=== PATIENT | female | born 2000 | race Caucasian/White ===

== ENCOUNTER 2020-10-30 16:47 | Observation (INO) | payer OTHER, SELFPAY ==
[2020-10-30 17:04] VITALS: BP 125/68; PULSE 100
[2020-10-30 17:06] VITALS: BP 119/68; PULSE 98
--- NOTE | 2020-10-30 17:26 | OBADM ---
This patient, Cyn Prescott, admitted to the OB room OB Post 117 for observation. Patient/family oriented to hospital policies and general routines including ID bracelet, bed and alarms, visiting hours, pain management, procedures, bathroom and other care routines, personal items, smoking policy, room service/diet, and visiting hours. Patient/Family are encouraged to report perceived risks to care and to ask questions if they do not understand what they are told or what they should do.
[2020-10-30 17:35] VITALS: BMI 37.0
[2020-10-30 17:57] LABS: Add Urine Microscopic? YES; Appearance Urine Clear (Clear); Bacteria Urine Trace /hpf; Bilirubin Urine Negative (Negative); Blood Urine 1+ (Negative); Color Urine Yellow (Yellow); Glucose Urine UA Negative (Negative); Ketones Urine Negative (Negative); Leukocyte Esterase Ur 2+ LEU/UL (NEGATIVE); Mucus Urine Few /lpf; Nitrate Urine Negative (Negative); Protein Urine 1+ mg/dL (Negative); Specific Grav Ur 1.024 (1.001-1.035); Squamous Epithelial Cell Urine Many /hpf (Few); Urobilinogen Urine Negative mg/dL (<2.0)
[2020-10-30 18:01] VITALS: BP 107/60; PULSE 80
--- NOTE | 2020-11-24 20:41 | PM.OBTRLD ---
OB - Triage/Final Diagnosis Evaluation Laboratory results: Laboratory Tests 10/30/20 17:33 Urine Color Yellow Urine Appearance Clear Urine pH 6.0 Ur Specific Success 1.024 Urine Protein 1+ H Urine Glucose (UA) Negative Urine Ketones Negative Ur Blood (Man) 1+ H Urine Nitrate Negative Urine Bilirubin Negative Urine Urobilinogen Negative Ur Leukocyte Esterase 2+ H Urine RBC 3-5 H Urine WBC 7-9 H Ur Squamous Epith Cells Many H Urine Bacteria Trace Hyaline Casts 1-2 Urine Mucus Few H Final Diagnosis (1) contractions: Code(s): O47.9 - False labor, unspecified Status: Acute
== END 2020-10-30 18:45 | disposition home or self-care (01) ==
PROVIDERS: Admitting Provider Obstetrics & Gynecology; PCP Family Medicine; Visit Provider Obstetrics & Gynecology
DX: O47.03 False labor before 37 completed weeks of gestation, third trimester (principal); Z3A.34 34 weeks gestation of pregnancy
CPT/HCPCS: 81001; 87086; 87088; G0378; G0379

== ENCOUNTER 2020-12-03 06:02 | Inpatient (IN) | payer OTHER, SELFPAY ==
[2020-12-03] VITALS (51 sets, daily range): BP systolic 105–141; BP diastolic 56–90; PULSE 62–102; RESP 16; TEMP 36.2–36.6; O2SAT 98–100; BMI 39.6
[2020-12-03 06:53] LABS: Basophils Percent Auto 0.4 % (0.2-1.2); Eosinophils Percent Auto 0.6 % (0-4.4); Hemoglobin 12.1 g/dL (12.0-15.0); Immature Granulocyte Absolute 0.04 K/mm3 (0.00-0.031); Immature Granulocyte Percent A 0.6 % (0-0.5); Lymphocytes Absolute Auto 2.53 K/mm3 (0.9-3.2); Lymphocytes Percent Auto 36.9 % (18.3-44.2); Mean Corpuscular HGB Conc 31.8 g/dl (32-36); Mean Corpuscular Hemoglobin 28.2 pg (26-34); Mean Corpuscular Volume 88.6 fl (80-100); Mean Platelet Volume 11.2 fl (7.4-10.4); Monocytes Absolute Auto 0.4 K/mm3 (0.1-0.6); Monocytes Percent Auto 5.7 % (2.6-8.5); Neutrophils Absolute Auto 3.8 K/mm3 (1.3-6.7); Neutrophils Percent Auto 55.8 % (45.5-73.1); Platelet Count Result 218 k/mm3 (150-375); Red Blood Count 4.29 M/mm3 (4.2-5.4); Red Cell Distribution Width 13.3 % (11.5-14.5); White Blood Count 6.9 K/mm3 (4.5-10.0)
[2020-12-03] MEDS: OXYTOCIN 30 UNITS/NS 500 ML 30 UNITS/500 ML BAG IV CONT (07:05)
[2020-12-03] MEDS: LACTATED RINGERS 1,000 ML 125 ML IV CONT (07:06)
--- NOTE | 2020-12-03 07:16 | LDADM ---
This patient, Cyn Prescott, was admitted to Labor/Delivery/Recovery 105 on 12/03/20 at 06:02. Plans for labor, pain management and were discussed with patient. Patient/family oriented to hospital policies and general routines including ID bracelet, bed and alarms, visiting hours, pain management, procedures, bathroom and other care routines, personal items, smoking policy, room service/diet and guest tray routines, security routines, and visiting hours. Patient/Family are encouraged to report perceived risks to care and to ask questions if they do not understand what they are told or what they should do. See OBIX for further documentation.
--- NOTE | 2020-12-03 08:07 | WPDHPUPDATE1 ---
History and Physical Update Update Date/Time: 12/03/20 08:07 AROM - clear 50/-3 reactive fht's History and Physical has been reviewed, including an updated exam of the patient. There are NO changes in the patient's condition. Risks, benefits, and alternatives have been discussed and questions answered. Patient agrees to proceed with procedure.
[2020-12-03 08:37] LABS: Glucose Point of Care 87 (65-105)
--- NOTE | 2020-12-03 10:28 | WPDANESEPP ---
Anes - Eval Pre Procedure Procedure: labor epidural Date/Time: 12/03/20 10:28 Surgeon: Chaya Preop Diagnosis: pain during labor Pre Op Diagnosis: Induction of Labor Patient Data Age: 20 Gender: F Height: 5 ft 5 in Weight: 108 kg Last Vital Signs Temp 36.4 C L 12/03/20 10:00 Pulse 74 12/03/20 10:26 BP 132/72 12/03/20 10:26 Pulse Ox 100 12/03/20 10:25 Allergies Allergy/AdvReac Type Severity Reaction Status Date / Time No Known Allergies Allergy Unverified 07/22/19 19:12 Home Medications Medication Instructions Recorded Confirmed Type PNV no.[id number] 2 tablet PO DAILY 12/03/20 12/03/20 History [ Gummies] Laboratory Tests 12/03/20 12/03/20 12/03/20 06:46 06:46 06:46 WBC 6.9 K/mm3 K/mm3 (4.5-10.0) RBC 4.29 M/mm3 M/mm3 (4.2-5.4) Hgb 12.1 g/dL g/dL (12.0-15.0) Hct 38.0 % % (37.0-47.0) MCV 88.6 fl fl (80-100) MCH 28.2 pg pg (26-34) MCHC 31.8 g/dl L g/dl (32-36) RDW 13.3 % % (11.5-14.5) Plt Count 218 k/mm3 k/mm3 (150-375) MPV 11.2 fl H fl (7.4-10.4) Immature Gran % (Auto) 0.6 % H % (0-0.5) Neut % (Auto) 55.8 % % (45.5-73.1) Lymph % (Auto) 36.9 % % (18.3-44.2) Lynn % (Auto) 5.7 % % (2.6-8.5) Eos % (Auto) 0.6 % % (0-4.4) Baso % (Auto) 0.4 % % (0.2-1.2) Lymph # (Auto) 2.53 K/mm3 K/mm3 (0.9-3.2) [place] # (Auto) 0.4 K/mm3 K/mm3 (0.1-0.6) Eos # (Auto) 0.0 K/mm3 K/mm3 (0-0.3) Baso # (Auto) 0.0 K/mm3 K/mm3 (0.0-0.1) Abs Immat Gran (auto) 0.04 K/mm3 H K/mm3 (0.00-0.031) Absolute Neuts (auto) 3.8 K/mm3 K/mm3 (1.3-6.7) Absolute Nucleated RBC 0.0 K/mm3 K/mm3 (0.0-0.012) Nucleated RBC % 0.0 % % (0.0-0.2) POC Capillary Glucose RPR Pending Blood Type A Positive Antibody Screen Negative 12/03/20 08:34 WBC RBC Hgb Hct MCV MCH MCHC RDW Plt Count MPV Immature Gran % (Auto) Neut % (Auto) Lymph % (Auto) Lynn % (Auto) Eos % (Auto) Baso % (Auto) Lymph # (Auto) Lynn # (Auto) Eos # (Auto) Baso # (Auto) Abs Immat Gran (auto) Absolute Neuts (auto) Absolute Nucleated RBC Nucleated RBC % POC Capillary Glucose 87 mg/dl mg/dl (65-105) RPR Blood Type Antibody Screen Patient hx anesthesia problems: none Family hx anesthesia problems: none PMFSH Past Medical History Medical History Morbid obesity Smoker Social History Social History Years smoked: 5 Smoking status: Current every day smoker Tobacco type: cigarettes Second hand tobacco smoke exposure: No Gender identity (if verbalized by the patient): Female Sexual Orientation (if Verbalized by the Patient): Straight or Heterosexual Spiritual care concerns: No Exam Day of Procedure 12/03/20 10:28 Patient weight: morbidly obese Heart: regular rate and rhythm Lungs: clear to auscultation and normal air movement Neurological: alert and oriented
[2020-12-03 11:58] LABS: Amphetamine Screen Urine Negative (Negative); Barbiturate Screen Urine Negative (Negative); Benzodiazepines Screen Urine Negative (Negative); Cannabinoid Screen Urine Negative (Negative); Cocaine Screen Urine Negative (Negative); Methadone Screen Urine Negative (Negative); Opiate Screen Urine Negative (Negative); Phencyclidine Screen Urine Negative (Negative)
--- NOTE | 2020-12-03 13:03 | PM.OBPRVD ---
OB - Delivery Note Procedure Delivery date: 12/03/20 Procedure: events: Labor Induction Intrapartal events: None Induction method: AROM and per pitocin protocol Delivery monitor: external FHT and external uterine Route of delivery: Quantitative Blood Loss (ml): 150 Anesthesia type: Epidural Disposition: floor [place] Baby Date of : 12/03/20 Time of : 12:54 Weeks of gestation at delivery: 39 Weight (pounds): 8 Weight (ounces): 0 position: Left Occiput Anterior Placenta delivery description: Spontaneous score one minute: 8 score five minutes: 9
[2020-12-03] MEDS: OXYTOCIN 30 UNITS/NS 500 ML 30 UNITS/500 ML BAG 125 UNITS IV CONT (13:10)
--- NOTE | 2020-12-03 16:35 | PC.NURSE ---
Patient transferred to post room #279 via wheelchair. Support person present. Oriented to unit, room, information board, rooming in, admission packet and security measures. Patient verbalizes understanding.
[2020-12-04] MEDS: IBUPROFEN 600 MG TABLET PO ×2 (04:30→13:18)
[2020-12-04 05:28] LABS: Hemoglobin 10.1 g/dL (12.0-15.0)
--- NOTE | 2020-12-04 07:39 | PM.OBPNVD ---
OB - PN: Subj Subjective Date/time seen: 12/04/20 07:39 Patient comments: no complaints baby status: doing well OB - PN: Obj Data Labs CBC & Chem 7: 12/04/20 04:35 Labs: Laboratory Results - last 24 hr 12/03/20 12/03/20 12/03/20 06:46 08:34 11:34 Hgb Hct POC Capillary Glucose 87 Urine Opiates Screen Negative Urine Methadone Screen Negative Ur Barbiturates Screen Negative Ur Phencyclidine Scrn Negative Ur Amphetamine Screen Negative U Benzodiazepines Scrn Negative Urine Cocaine Screen Negative U Cannabinoids Screen Negative Blood Type A Positive Antibody Screen Negative 12/04/20 04:35 Hgb 10.1 L Hct 32.0 L POC Capillary Glucose Urine Opiates Screen Urine Methadone Screen Ur Barbiturates Screen Ur Phencyclidine Scrn Ur Amphetamine Screen U Benzodiazepines Scrn Urine Cocaine Screen U Cannabinoids Screen Blood Type Antibody Screen OB - PN A/P Plan day: 1 Plan: routine care and discharge home Time Spent With Patient Time: Total time spent is greater than 50% in coordination of care (as documented) at patient's floor/unit and/or counseling patient: Review of Systems Review of Systems: All systems reviewed & are unremarkable except as noted in HPI and below Exam Const: General: cooperative Nutritional Appearance: average body habitus Psych: Affect: normal affect Thought process: Normal thought process present Thought content: Yes Normal thought content present
--- NOTE | 2020-12-04 07:43 | PM.OBDSVD ---
DS: Admitting Diagnosis Admitting Diagnosis Admitting Diagnosis: EIL OB - DS: Summary OB Procedures : None OB Procedures Intrapartum: Spontaneous Vag Delivery OB Procedures: : None Time Spent with Patient Time attestation: Total time spent providing and/or coordinating discharge services: DS: Data Data Completed and Pending Labs on day of discharge: Labs from last 24 hours 12/04/20 12/03/20 12/03/20 04:35 11:34 08:34 Hgb 10.1 L Hct 32.0 L POC Capillary Glucose 87 Urine Opiates Screen Negative Urine Methadone Screen Negative Ur Barbiturates Screen Negative Ur Phencyclidine Scrn Negative Ur Amphetamine Screen Negative U Benzodiazepines Scrn Negative Urine Cocaine Screen Negative U Cannabinoids Screen Negative Blood Type Antibody Screen 12/03/20 06:46 Hgb Hct POC Capillary Glucose Urine Opiates Screen Urine Methadone Screen Ur Barbiturates Screen Ur Phencyclidine Scrn Ur Amphetamine Screen U Benzodiazepines Scrn Urine Cocaine Screen U Cannabinoids Screen Blood Type A Positive Antibody Screen Negative Discharge Plan Discharge Attending physician on discharge: roosevelt Discharging Clinician: susan Patient Disposition: Home, Self-Care Activity: pelvic rest Diet: regular Patient Instructions: Antibiotic Form Stand Alone Forms: General Discharge Information Follow-up/Referrals: Aguila Larkin MD [Physician] - 4 Weeks Discharge Medications: Continued Gummies 400 mcg-35 mg- 25 mg-5 mg Tablet,Chewable 2 tablet PO DAILY RF: 0 Date of admission: 12/03/20 06:02 Primary Care Provider: Rohini,Neli Mccartney Admitting Provider: Aguila Larkin Attending physician on admission: Aguila Larkin Condition: Stable
[2020-12-04 07:50] VITALS: BP 138/70; PULSE 72; RESP 16; TEMP 36.6; O2SAT 99
[2020-12-04 08:00] VITALS: PULSE 72; RESP 16; O2SAT 99
[2020-12-04] MEDS: MULTIVIT/MIN/PREN/FOL AC/IRON TABLET 1 TAB PO (09:06)
--- NOTE | 2020-12-04 09:12 | WPDANLDPN2 ---
Anes-Prog Note L&D Date/Time: 12/04/20 09:12 Comfortable throughout: labor Neuraxial method: epidural Epidural/Spinal procedure site: clean & non-tender Neuro status: Neuro function grossly intact. Cardiovascular status: normal Respiratory status: normal Airway patency: baseline Mental status: baseline Post-Op hydration status: normal Vital Signs: Last Vital Signs Temp 36.3 C L 12/03/20 19:30 Pulse 96 12/03/20 19:30 Resp 16 12/03/20 19:30 BP 129/68 12/03/20 19:30 Pulse Ox 100 12/03/20 19:30 Pain score (VAS): 0 Post-procedural complaints: none Patient feedback: Patient satisfied with anesthetic care.
[2020-12-04 09:32] LABS: Rapid Plasma Reagin Non-Reactive (NonReactive)
--- NOTE | 2020-12-04 10:59 | PC.NURSE ---
1030 Breast feeding note; spent time with mother; reviewed frequency,q2-3h and on demand feedings, and duration of feedings, keeping baby nursing as vigorously as he will for as long as he will, and waking infant if necessary. Mother reports comfortable breast feeding, no nipple pain and that baby is latching well. Reviewed care of breasts through engorgement. Mother states she has a Medela pump at home from her sister. Encouraged exclusive breast feeding for the first two weeks to establish milk supply, using pump as needed for comfort if needed, especially when her milk first comes in. Reviewed nipple care, and use of feeding log to monitor feedings and wet/dirty diapers per day of age. Breast feeding pages flagged in pt's Mother Baby Guide, including LC contact information. Pt encouraged to keep her f/u appointment with nurse here at hospital as well as the baby's 1 week check-up with baby's DrRiki; also encouraged to call the LC office as needed with questions or concerns. Nurse offered to come back and observe a breast feeding prior to their discharge today. Mother nodded in agreement, but did not seem to have any concerns. Pt attentive and voiced understanding of all information shared.
[2020-12-04] MEDS: MEASLES,MUMPS,RUBELLA VACCINE 0.5 ML VIAL SUB-Q (16:17)
== END 2020-12-04 16:55 | disposition home or self-care (01) | DRG 560 ==
LOC: ANHLDR 06:12 → ANHOB2 15:43
PROVIDERS: Admitting Provider Obstetrics & Gynecology; PCP Family Medicine; Visit Provider Obstetrics & Gynecology
DX: O99.214 Obesity complicating childbirth (principal); E66.01 Morbid (severe) obesity due to excess calories; O99.334 Smoking (tobacco) complicating childbirth; F17.210 Nicotine dependence, cigarettes, uncomplicated; Z3A.39 39 weeks gestation of pregnancy; Z37.0 Single live birth
CPT/HCPCS: 36415; 80307; 85014; 85018; 85025; 86592; 86850; 86900; 86901; 90710; A9270; J2590; J2795; J7120

== ENCOUNTER 2025-02-28 22:25 | Emergency (ER) | payer OTHER, SELFPAY ==
[2025-02-28 22:27] VITALS: BP 131/73; PULSE 76; RESP 18; TEMP 36.6; O2SAT 100
--- OUTSIDE RECORDS SUMMARY | 2025-02-28 22:46 | XMS_ITS | Clinical Summary ---
Author Organization [facility] Address [address] [place] [address] Care Team Providers Care [place] Tanner Name Role Phone Unavailable Primary Care Provider Unavailabl e Source Comments [facility],non-owned Affiliates and Associated Physician Practices is amultiple site organization consisting of ambulatory clinics and hospital sitesin [place], [place], [place] and [place]. This disclosure is being madepursuant to the Care Everywhere program and may not contain all information available regarding this patient. Last updated 18.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 [employer] Gender Identity Not on file Sexual Orientation Not on file Plan of Treatment Health Maintenance Due Date Last Done Comments PAP SMEAR 1998 HIV SCREENING 2013 HPV VACCINE (1 - 3-dose series) 2013 HEPATITIS C SCREENING 06/10/2016 DTAP/TDAP/TD VACCINES (1 - Tdap) 2017 HEPATITIS B VACCINE (1 of 3 - 19+ 3-dose series) 2017 COVID-19 VACCINE ( - 2023-2 5 season) 2024 DEPRESSION SCREENING 11/06/2024 OB-ONE HOUR GLUCOSE 11/08/2024 OB-TDAP CURRENT 11/15/2024 OB-RHOGAM INJECTION 11/22/2024 OB-GROUP B STREP SCREEN 01/10/2025 INFLUENZA VACCINE (Season Ended) 2025 ZOSTER VACCINE (1 of 2) 2048 HIB VACCINE Aged Out No longer eligi ble based on patient's age to complete this topic MENINGOCOCCAL (Group B) VACC INE SHARED DECISION-MAKING Aged Out No longer eligibl e based on patient's age to complete this topic MENINGOCOCCAL GROUPS A/C/Y/W VACCINE Aged Out No longer eligible b ased on patient's age to complete this topic PNEUMOCOCCAL VACCINE Aged Out No long er eligible based on patient's age to complete this topic Respiratory Syncytial Virus (RSV) Vaccine Pt: or over 60 yrs (No Doses Required) Completed Insurance
[2025-02-28 23:03] LABS: Basophils Absolute Auto 0.1 K/mm3 (0.0-0.1); Basophils Percent Auto 0.8 % (0.2-1.2); Eosinophils Absolute Auto 0.1 K/mm3 (0-0.3); Eosinophils Percent Auto 2.2 % (0-4.4); Hematocrit 33.2 % (37.0-47.0); Hemoglobin 9.6 g/dL (12.0-15.0); Immature Granulocyte Absolute 0.01 K/mm3 (0.00-0.031); Immature Granulocyte Percent A 0.2 % (0-0.5); Lymphocytes Absolute Auto 2.79 K/mm3 (0.9-3.2); Lymphocytes Percent Auto 46.8 % (18.3-44.2); Mean Corpuscular HGB Conc 28.9 g/dl (32-36); Mean Corpuscular Hemoglobin 25.7 pg (26-34); Mean Corpuscular Volume 88.8 fl (80-100); Mean Platelet Volume 9.9 fl (7.4-10.4); Monocytes Absolute Auto 0.3 K/mm3 (0.1-0.6); Monocytes Percent Auto 5.5 % (2.6-8.5); Neutrophils Absolute Auto 2.7 K/mm3 (1.3-6.7); Neutrophils Percent Auto 44.5 % (45.5-73.1); Platelet Count Result 342 k/mm3 (150-375); Red Blood Count 3.74 M/mm3 (4.2-5.4); Red Cell Distribution Width 13.9 % (11.5-14.5)
--- NOTE | 2025-02-28 23:06 | ED_ITS ---
HPI - General Adult General Chief complaint: Abdominal Pain Stated complaint: infection Time Seen by Provider: 02/28/25 22:27 Source: patient Mode of arrival: ambulatory Limitations: no limitations History of Present Illness HPI narrative: This is a 24-year-old female who who was approximately 3 weeks who presents to the ED for chief complaint of potential infection around the surgical incision site for her Caesarean section. Patient states that she has noticed a malodor as well as some drainage from the area. Denies any pain. Denies associated nausea, vomiting, diarrhea, fevers, syncope, dizziness. States that she had the danay removed about 2 weeks ago. States that she has been trying to keep the area dry although it is consistently moist. Related Data Home Medications ?Medication ?Instructions ?Recorded ?Confirmed ?Last Taken ?Type PNV 153-FA 400 mcg-om3 35 mg-dha 2 tablet PO DAILY 12/03/20 12/03/20 12/02/20 09:00 History 25 mg-epa 5 mg-fish oil chew tablet ( Gummies) Allergies Allergy/AdvReac Type Severity Reaction Status Date / Time No Known Allergies Allergy Verified 02/28/25 22:26 Review of Systems 2 Review of Systems: All systems as dictated in [facility] Past Medical History Medical History (Updated 02/28/25 @ 23:37 by Alexandro Mckeon PA-C) Smoker Morbid obesity Social History Social History Years smoked: 5 Smoking status: Current every day smoker Tobacco type: cigarettes Second hand tobacco smoke exposure: No Gender identity (if verbalized by the patient): Female Sexual Orientation (if Verbalized by the Patient): Straight or Heterosexual Spiritual care concerns: No Exam 2 Narrative: GENERAL: Well-appearing, well-nourished, and in no acute distress. HEAD: Normocephalic, atraumatic. EYES: PERRLA and EOMI. ENT: Nares clear, no rhinorrhea or epistaxis. Mucous membranes moist. Oropharynx without tonsillar hypertrophy exudate or other lesions. NECK: Supple. No adenopathy or masses. CHEST: No respiratory distress. Clear to auscultation. No wheezes rales or rhonchi HEART: Regular rate and rhythm. No murmur heard. Normal peripheral pulses. ABDOMEN: Skin fold of the abdomen containing well-healing incision. However the area is quite moist with malodor. There are beefy red satellite lesions scattered around the skin in this region. There is no warmth or tenderness. Minimal surrounding erythema and no induration fluctuance. Soft, nontender, nondistended, normal active bowel sounds. MSK: Normal range of motion. No edema. SKIN: Warm, dry, no rash. NEURO: Alert and oriented x4. No focal deficits. PSYCH: Normal mood and affect. Course Vital Signs Vital signs: Vital Signs Temperature 98 F 02/28/25 22: Pulse Rate 76 02/28/25 22:27 Respiratory Rate 18 02/28/25 22:27 Blood Pressure 131/73 02/28/25 22:27 Pulse Oximetry 100 02/28/25 22:27 Oxygen Delivery Room Air 02/28/25 22:27 Temperature 98 F 02/28/25 22: Pulse Rate 76 02/28/25 22:27 Respiratory Rate 18 02/28/25 22:27 Blood Pressure 131/73 02/28/25 22:27 Pulse Oximetry 100 02/28/25 22:27 Oxygen Delivery Room Air 02/28/25 22:27 Medical Decision Making MDM Narrative Medical decision making narrative: This is a 24-year-old female who presents to the ED for chief complaint of possible infection to the site, 3 weeks . Vitals are normal. Exam shows moist abdominal skin fold with red satellite lesions around the incision site. The incision itself is well-appearing and does not appear to be open or draining. Presentation most likely consistent with yeast infection of the skin. Lab work is unremarkable overall. Urinalysis does show some evidence of leuk esterase and white blood cells, however she is not having urinary symptoms. Urine culture is pending. Will defer to Ob/primary as I do think antibiotics could make the yeast infection worse. Patient was given Rx for topical miconazole. Patient will be discharged in stable condition. Supportive measures discussed and return precautions given. Patient is understanding and agreeable with plan for discharge with PCP follow-up. Vital Signs Vital Signs: Vital Signs Temperature 98 F 02/28/25 22:27 Pulse Rate 76 02/28/25 22:27 Respiratory Rate 18 02/28/25 22:27 Blood Pressure 131/73 02/28/25 22:27 Pulse Oximetry 100 02/28/25 22:27 Oxygen Delivery Room Air 02/28/25 22:27 Temperature 98 F 02/28/25 22:27 Pulse Rate 76 02/28/25 22:27 Respiratory Rate 18 02/28/25 22:27 Blood Pressure 131/73 02/28/25 22:27 Pulse Oximetry 100 02/28/25 22:27 Oxygen Delivery Room Air 02/28/25 22:27 Lab Data 02/28/25 22:52 02/28/25 22:52 Labs: Lab Results 02/28/25 02/28/25 02/28/25 Range/Units 22:52 23:36 23:38 WBC 6.0 (4.5-10.0) K/mm3 RBC 3.74 L (4.2-5.4) M/mm3 Hgb 9.6 L (12.0-15.0) g/dL Hct 33.2 L (37.0-47.0) % MCV 88.8 (80-100) fl MCH 25.7 L (26-34) pg MCHC 28.9 L (32-36) g/dl RDW 13.9 (11.5-14.5) % Plt Count 342 D (150-375) k/mm3 MPV 9.9 (7.4-10.4) fl Immature Gran % (Auto) 0.2 (0-0.5) % Neut % (Auto) 44.5 L (45.5-73.1) % Lymph % (Auto) 46.8 H (18.3-44.2) % [place] % (Auto) 5.5 (2.6-8.5) % Eos % (Auto) 2.2 (0-4.4) % Baso % (Auto) 0.8 (0.2-1.2) % Lymph # (Auto) 2.79 (0.9-3.2) K/mm3 [place] # (Auto) 0.3 (0.1-0.6) K/mm3 Eos # (Auto) 0.1 (0-0.3) K/mm3 Baso # (Auto) 0.1 (0.0-0.1) K/mm3 Abs Immat Gran (auto) 0.01 (0.00-0.031) K/mm3 Absolute Neuts (auto) 2.7 (1.3-6.7) K/mm3 Absolute Nucleated RBC 0.000 (0.0-0.012) K/mm3 Band Neutrophils % 0 (0-6) % Nucleated RBC % 0.0 (0.0-0.2) % Platelet Estimate Adequate (Adequate) Hypochromasia 1+ Anisocytosis 1+ Schistocytes None seen Sodium 139 (137-145) mmol/L Potassium 4.1 (3.4-5.0) mmol/L Chloride 104 (98-107) mmol/L Carbon Dioxide 27 (22-30) mmol/L Anion Gap 8 (4-12) mmol/L BUN 14 (7-17) mg/dL Creatinine 0.84 (0.7-1.0) mg/dL Estim Creat Clear Calc 103 ml/min Estimated GFR > 60 (59 - ) Glucose 112 H (65-110) mg/dL Calcium 8.4 (8.4-10.2) mg/dL Total Bilirubin 0.3 (0.2-1.3) mg/dL AST 25 (14-36) U/L ALT 17 (6-35) U/L Alkaline Phosphatase 87 (38-126) U/L Total Protein 7.0 (6.3-8.2) g/dL Albumin 4.0 (3.5-5.1) g/dL Lipase 126 (23-300) U/L Urine Color Yellow (Yellow) Urine Appearance Clear (Clear) Urine pH 5.5 (5.0-9.0) Ur Specific [place] 1.023 (1.001-1.035) Urine Protein Negative (Negative) mg/dL Urine Glucose (UA) Negative (Negative) mg/dL Urine Ketones Trace H (Negative) mg/dL Ur Blood (Man) 2+ H (Negative) Urine Nitrate Negative (Negative) Urine Bilirubin Negative (Negative) Urine Urobilinogen 0.2 (<2.0) mg/dL Leukocyte Esterase Rfl 2+ H (Negative) LUZMARIA/UL Urine RBC 11-20 H (0-2) /hpf Urine WBC 11-20 H (0-3) /hpf Ur Squamous Epith Cells None seen (Few) /hpf Urine Bacteria None seen /hpf Urine Casts 0-2 POC Urine HCG, Qual Negative (Negative) Discharge Plan Discharge Clinical Impression: Yeast dermatitis Patient Disposition: Home Condition: Stable Instructions: Antibiotic Form, Skin Yeast Infection (ED) Additional Instructions: Exam today is consistent with a yeast infection of the skin. Please use topical miconazole. Follow-up closely with OB on this issue. Follow-up with your OB as well on any potential UTI. The urine culture is pending. If you have any new or worsening symptoms please return to the ER for further evaluation. Patient Language: Faroese Prescriptions: New miconazole nitrate [Antifungal (miconazole)] 2 % powder 1 applic topical BID Qty: 85 0RF No Action Gummies 400 mcg-35 mg- 25 mg-5 mg Tablet,Chewable 2 tablet PO DAILY Follow-up/Referrals: Jonel,Neli Mccartney MD [Primary Care Provider] - Time of Disposition: 23:38
[2025-02-28 23:17] LABS: Alanine Aminotransferase 17 U/L (6-35); Alkaline Phosphatase 87 U/L (38-126); Anion Gap 8 mmol/L (4-12); Aspartate Amino Transferase 25 U/L (14-36); Bilirubin,Total 0.3 mg/dL (0.2-1.3); Blood Urea Nitrogen 14 mg/dL (7-17); Calcium 8.4 mg/dL (8.4-10.2); Carbon Dioxide 27 mmol/L (22-30); Chloride 104 mmol/L (98-107); Estimated CRCL calculation 103 ml/min; Estimated Glomerular Filt Rate > 60; Glucose 112 mg/dL (65-110); Lipase 126 U/L (23-300); Potassium 4.1 mmol/L (3.4-5.0); Sodium 139 mmol/L (137-145)
[2025-02-28 23:27] LABS: Anisocytosis 1+; Band Neutrophils Percent 0 % (0-6); Hypochromasia 1+; Platelet Estimate Adequate (Adequate); Schistocytes None Seen
[2025-02-28 23:40] LABS: BEDSIDEPREGUCG Negative (Negative)
[2025-02-28] MEDS: MICONAZOLE NITRATE 2% CREAM 30 GM TUBE 1 APPLIC TOPICAL (23:47)
[2025-02-28 23:48] LABS: Add Urine Microscopic? YES; Appearance Urine Clear (Clear); Bacteria Urine None Seen /hpf; Bilirubin Urine Negative (Negative); Blood Urine 2+ (Negative); Color Urine Yellow (Yellow); Glucose Urine UA Negative (Negative); Ketones Urine Trace mg/dL (Negative); Leukocyte Esterase Ur 2+ LEU/UL (Negative); Nitrate Urine Negative (Negative); Non Pathogenic Casts 0-2; Protein Urine Negative (Negative); Specific Grav Ur 1.023 (1.001-1.035); Squamous Epithelial Cell Urine None Seen /hpf (Few); Urobilinogen Urine 0.2 mg/dL (<2.0); pH Urine 5.5 (5.0-9.0)
[2025-03-01 00:28] VITALS: BP 122/84; PULSE 83; RESP 15; TEMP 37.1; O2SAT 100
[2025-03-01 00:37] VITALS: BP 122/84; PULSE 83; RESP 15; TEMP 37.1; O2SAT 100
== END 2025-03-01 00:39 | disposition home or self-care (01) ==
PROVIDERS: Emergency Provider Physician Assistant; PCP Family Medicine
DX: L30.3 Infective dermatitis (principal); B37.2 Candidiasis of skin and nail
CPT/HCPCS: 36415; 80053; 81001; 81025; 83690; 85025; 87086; 99283; A9270

== ENCOUNTER 2025-04-29 15:36 | Emergency (ER) | payer OTHER, SELFPAY ==
[2025-04-29 15:40] VITALS: BP 149/91; PULSE 94; RESP 18; TEMP 36.4; O2SAT 100
[2025-04-29 16:56] VITALS: BP 115/83; PULSE 89; RESP 15; O2SAT 100
--- NOTE | 2025-04-29 17:29 | ECG_ITS ---
Test Date: 2025-04-29 17:41:52 Measurements Intervals [place] Rate: 69 P: 39 CO: 162 QRS: 20 QRSD: 114 T: 26 QT: 407 QTc: 437 Interpretive Statements SINUS RHYTHM WITH SINUS ARRHYTHMIA INTRAVENTRICULAR CONDUCTION DELAY BASELINE WANDER- V1-V6 BORDERLINE ECG No previous ECG available for comparison Electronically Signed On 04-29-2025 19:22:30 CDT by Chay Flannery D.O.
--- NOTE | 2025-04-29 17:41 | ED.GENADULT ---
HPI - General Adult General Chief complaint: Arrhythmia/Palpitations Stated complaint: heart palpitations, light headed month Time Seen by Provider: 04/29/25 17:02 History of Present Illness HPI narrative: Patient is a 24-year-old female presents to the ER with concerns ?spaciness, hot flashes, shakiness, dizziness, and increased hunger. She reports her symptoms have been going on for approximately 1 year. Patient reports she delivered a baby on February 10, 2025 and her symptoms subsided. Patient reports within the last couple of weeks they have restarted. She reports ?I realized I did not have a primary care provider and try to schedule appointment but they could get me until August. Patient denies any shortness of breath, chest pain, or recent fevers. She reports she noticed her symptoms mostly in the morning and they tend to resolve throughout the day. Patient reports she drinks approximately 1 cup of coffee per day and drinks ?a lot of water because she is breast-feeding. She denies any other pertinent medical history relevant to this ER visit. Related Data Home Medications ?Medication ?Instructions ?Recorded ?Confirmed ?Last Taken ?Type PNV 153-FA 400 mcg-om3 35 mg-dha 2 tablet PO DAILY 12/03/20 12/03/20 12/02/20 09:00 History 25 mg-epa 5 mg-fish oil chew tablet ( Gummies) Allergies Allergy/AdvReac Type Severity Reaction Status Date / Time No Known Allergies Allergy Verified 04/29/25 17:03 Review of Systems Review of Systems: All systems reviewed & are unremarkable except as noted in HPI and below PMFSH Past Medical History Medical History Smoker Morbid obesity Social History Social History Years smoked: 5 Smoking status: Current every day smoker Tobacco type: cigarettes Second hand tobacco smoke exposure: No Gender identity (if verbalized by the patient): Female Sexual Orientation (if Verbalized by the Patient): Straight or Heterosexual Spiritual care concerns: No Exam Narrative: GENERAL: Well appearing, well-nourished, non-toxic, in no acute distress. HEAD: Normocephalic, atraumatic. NECK: Supple. No adenopathy, no masses. RESPIRATORY: Airway patent, respirations nonlabored. Clear to auscultation bilaterally, no rales, rhonchi, wheezing. CARDIOVASCULAR: Regular rate and rhythm without murmurs, rubs, or gallops. Peripheral pulses 2+ and equal bilaterally. ABDOMINAL: Soft, nontender, nondistended, no hepatosplenomegaly. Normoactive BS. MUSCULOSKELETAL: Moves all extremities. Strength/ROM intact without gross deformities. SKIN: Warm, dry, normal color. No rashes. NEURO: A&O X3. Speech clear. Cranial nerves II-XII intact. No ataxic movements. PSYCHIATRIC: Appropriate mood and affect. Normal interaction. Course Vital Signs Vital signs: Vital Signs Temperature 36.4 C 04/29/25 15:40 Pulse Rate 94 04/29/25 15:40 Respiratory Rate 18 04/29/25 15:40 Blood Pressure 149/91 H 04/29/25 15:40 Pulse Oximetry 100 04/29/25 15:40 Oxygen Delivery Room Air 04/29/25 15:40 Temperature 36.4 C 04/29/25 15:40 Pulse Rate 72 04/29/25 21:14 Respiratory Rate 15 04/29/25 21:14 Blood Pressure 111/72 04/29/25 21:14 Pulse Oximetry 97 04/29/25 21:14 Oxygen Delivery Room Air 04/29/25 16:56 Medical Decision Making [facility] Narrative Medical decision making narrative: Patient is a 24-year-old female presents to the ER with concerns ?spaciness, hot flashes, shakiness, dizziness, and increased hunger. She reports her symptoms have been going on for approximately 1 year. Patient reports she delivered a baby on February 10, 2025 and her symptoms subsided. Patient reports within the last couple of weeks they have restarted. She reports ?I realized I did not have a primary care provider and try to schedule appointment but they could get me until August. Patient denies any shortness of breath, chest pain, or recent fevers. She reports she noticed her symptoms mostly in the morning and they tend to resolve throughout the day. Patient reports she drinks approximately 1 cup of coffee per day and drinks ?a lot of water because she is breast-feeding. She denies any other pertinent medical history relevant to this ER visit. Labs Ordered: CBC, CMP, TSH, UDS, UA, magnesium, INR, PTT, troponin Imaging Ordered: None necessary Medications Ordered: 1 L normal saline IV bolus Results: Patient's CBC indicates a hemoglobin of 11.1, hematocrit of 36.3%. Her coags are within normal limits. Patient's chemistry indicates glucose of 141 an ALT of 38. Her TSH is 1.680. Diagnosis: Dizziness Patient Education/Shared MDM: Results of lab work shared with patient. She endorses no improvement of symptoms. Patient strongly advised to maintain hydration status upon discharge and follow-up with their PCP as soon as possible. She will be discharged home with no new prescriptions. Strict return precautions provided. Patient verbalized understanding and is in agreement with plan. Vital signs stable at time of discharge. All questions answered. Differential Diagnosis Differential Diagnosis: Dizziness, diabetes, Vital Signs Vital Signs: Vital Signs Temperature 36.4 C 04/29/25 15:40 Pulse Rate 94 04/29/25 15:40 Respiratory Rate 18 04/29/25 15:40 Blood Pressure 149/91 H 04/29/25 15:40 Pulse Oximetry 100 04/29/25 15:40 Oxygen Delivery Room Air 04/29/25 15:40 Temperature 36.4 C 04/29/25 15:40 Pulse Rate 72 04/29/25 21:14 Respiratory Rate 15 04/29/25 21:14 Blood Pressure 111/72 04/29/25 21:14 Pulse Oximetry 97 04/29/25 21:14 Oxygen Delivery Room Air 04/29/25 16:56 Lab Data Lab results reviewed: Yes I reviewed the patient's lab results. 04/29/25 17:50 04/29/25 17:50 Labs: Lab Results 04/29/25 Range/Units 17:50 WBC 5.2 (4.5-10.0) K/mm3 RBC 4.46 (4.2-5.4) M/mm3 Hgb 11.1 L (12.0-15.0) g/dL Hct 36.3 L (37.0-47.0) % MCV 81.4 (80-100) fl MCH 24.9 L (26-34) pg MCHC 30.6 L (32-36) g/dl RDW 15.5 H (11.5-14.5) % Plt Count 221 (150-375) k/mm3 MPV 9.8 (7.4-10.4) fl Immature Gran % (Auto) 0.2 (0-0.5) % Neut % (Auto) 44.5 L (45.5-73.1) % Lymph % (Auto) 45.1 H (18.3-44.2) % Tyler % (Auto) 7.7 (2.6-8.5) % Eos % (Auto) 1.9 (0-4.4) % Baso % (Auto) 0.6 (0.2-1.2) % Lymph # (Auto) 2.34 (0.9-3.2) K/mm3 Tyler # (Auto) 0.4 (0.1-0.6) K/mm3 Eos # (Auto) 0.1 (0-0.3) K/mm3 Baso # (Auto) 0.0 (0.0-0.1) K/mm3 Abs Immat Gran (auto) 0.01 (0.00-0.031) K/mm3 Absolute Neuts (auto) 2.3 (1.3-6.7) K/mm3 Absolute Nucleated RBC 0.000 (0.0-0.012) K/mm3 Nucleated RBC % 0.0 (0.0-0.2) % PT 12.6 (11.1-14.7) Seconds INR 0.9 APTT 26.9 (22.3-36.8) Seconds Sodium 140 (137-145) mmol/L Potassium 3.9 (3.4-5.0) mmol/L Chloride 105 (98-107) mmol/L Carbon Dioxide 24 (22-30) mmol/L Anion Gap 11 (4-12) mmol/L BUN 12 (7-17) mg/dL Creatinine 0.88 (0.7-1.0) mg/dL Estim Creat Clear Calc 99 ml/min Estimated GFR > 60 (59 - ) Glucose 141 H (65-110) mg/dL Hemoglobin A1c 6.0 H (<5.7) % Calcium 9.0 (8.4-10.2) mg/dL Magnesium 2.0 (1.6-2.3) mg/dL Total Bilirubin 0.3 (0.2-1.3) mg/dL AST 32 (14-36) U/L ALT 38 H (6-35) U/L Alkaline Phosphatase 67 (38-126) U/L Troponin I < 0.012 (0.000-0.034) ng/mL Total Protein 7.4 (6.3-8.2) g/dL Albumin 4.1 (3.5-5.1) g/dL TSH (Reflex) 1.680 (0.465-4.68) uIU/mL Urine Color Yellow (Yellow) Urine Appearance Clear (Clear) Urine pH 6.0 (5.0-9.0) Ur Specific [place] 1.025 (1.001-1.035) Urine Protein Negative (Negative) mg/dL Urine Glucose (UA) Negative (Negative) mg/dL Urine Ketones Trace H (Negative) mg/dL Ur Blood (Man) Negative (Negative) Urine Nitrate Negative (Negative) Urine Bilirubin Negative (Negative) Urine Urobilinogen 0.2 (<2.0) mg/dL Leukocyte Esterase Rfl Negative (Negative) LUZMARIA/UL Urine Opiates Screen Negative (Negative) Urine Methadone Screen Negative (Negative) Ur Barbiturates Screen Negative (Negative) Ur Phencyclidine Scrn Negative (Negative) Ur Amphetamine Screen Negative (Negative) U Benzodiazepines Scrn Negative (Negative) Urine Cocaine Screen Negative (Negative) U Cannabinoids Screen Negative (Negative) Discharge Plan Discharge Clinical Impression: Dizziness, nonspecific, Shakiness Patient Disposition: Home Condition: Stable Instructions: Antibiotic Form Additional Instructions: Please return to the ER with any worsening symptoms. Follow-up with primary care provider as soon as possible. Please remember to stay hydrated. Patient Language: Greek Prescriptions: No Action Gummies 400 mcg-35 mg- 25 mg-5 mg Tablet,Chewable 2 tablet PO DAILY miconazole nitrate [Antifungal (miconazole)] 2 % powder 1 applic topical BID Qty: 85 0RF Follow-up/Referrals: Jon,MARY Gramajo [Primary Care Provider] - (primary care) UNKNOWN,DOCTOR [Non-Staff] - Time of Disposition: 21:00
[2025-04-29 17:47] VITALS: BP 109/68; PULSE 79; RESP 18; O2SAT 100
[2025-04-29] MEDS: SODIUM CHLORIDE 0.9% IV 1,000 ML 999 ML IV CONT (17:52)
[2025-04-29 17:59] LABS: Add Urine Microscopic? NO; Appearance Urine Clear (Clear); Bilirubin Urine Negative (Negative); Blood Urine Negative (Negative); Color Urine Yellow (Yellow); Glucose Urine UA Negative (Negative); Ketones Urine Trace mg/dL (Negative); Leukocyte Esterase Ur Negative LEU/UL (Negative); Nitrate Urine Negative (Negative); Protein Urine Negative (Negative); Specific Grav Ur 1.025 (1.001-1.035); Urobilinogen Urine 0.2 mg/dL (<2.0)
[2025-04-29 18:04] LABS: Basophils Percent Auto 0.6 % (0.2-1.2); Eosinophils Absolute Auto 0.1 K/mm3 (0-0.3); Eosinophils Percent Auto 1.9 % (0-4.4); Hematocrit 36.3 % (37.0-47.0); Hemoglobin 11.1 g/dL (12.0-15.0); Immature Granulocyte Absolute 0.01 K/mm3 (0.00-0.031); Immature Granulocyte Percent A 0.2 % (0-0.5); Lymphocytes Absolute Auto 2.34 K/mm3 (0.9-3.2); Lymphocytes Percent Auto 45.1 % (18.3-44.2); Mean Corpuscular HGB Conc 30.6 g/dl (32-36); Mean Corpuscular Hemoglobin 24.9 pg (26-34); Mean Corpuscular Volume 81.4 fl (80-100); Mean Platelet Volume 9.8 fl (7.4-10.4); Monocytes Absolute Auto 0.4 K/mm3 (0.1-0.6); Monocytes Percent Auto 7.7 % (2.6-8.5); Neutrophils Absolute Auto 2.3 K/mm3 (1.3-6.7); Neutrophils Percent Auto 44.5 % (45.5-73.1); Platelet Count Result 221 k/mm3 (150-375); Red Blood Count 4.46 M/mm3 (4.2-5.4); Red Cell Distribution Width 15.5 % (11.5-14.5); White Blood Count 5.2 K/mm3 (4.5-10.0)
[2025-04-29 18:18] LABS: INR 0.9; Prothrombin Time 12.6 Seconds (11.1-14.7)
[2025-04-29 18:19] LABS: Partial Thromboplastin Time 26.9 Seconds (22.3-36.8)
[2025-04-29 18:23] LABS: Alanine Aminotransferase 38 U/L (6-35); Albumin Level 4.1 g/dL (3.5-5.1); Alkaline Phosphatase 67 U/L (38-126); Anion Gap 11 mmol/L (4-12); Aspartate Amino Transferase 32 U/L (14-36); Bilirubin,Total 0.3 mg/dL (0.2-1.3); Blood Urea Nitrogen 12 mg/dL (7-17); Carbon Dioxide 24 mmol/L (22-30); Chloride 105 mmol/L (98-107); Estimated CRCL calculation 99 ml/min; Estimated Glomerular Filt Rate > 60; Glucose 141 mg/dL (65-110); Potassium 3.9 mmol/L (3.4-5.0); Sodium 140 mmol/L (137-145); Total Protein 7.4 g/dL (6.3-8.2)
[2025-04-29 18:35] LABS: Amphetamine Screen Urine Negative (Negative); Barbiturate Screen Urine Negative (Negative); Benzodiazepines Screen Urine Negative (Negative); Cannabinoid Screen Urine Negative (Negative); Cocaine Screen Urine Negative (Negative); Methadone Screen Urine Negative (Negative); Opiate Screen Urine Negative (Negative); Phencyclidine Screen Urine Negative (Negative); Troponin I < 0.012 ng/mL (0.000-0.034)
[2025-04-29 19:08] VITALS: BP 122/62; PULSE 71; PULSE 74; RESP 18; O2SAT 99
--- NOTE | 2025-04-29 19:12 | PC.NURSE ---
Assumed care of patient after receiving bedside report from KIM Sims @ [phone]
--- NOTE | 2025-04-29 19:12 | PC.NURSE ---
Spoke with Luigi in the lab regarding the A1C. Test is to be added on.
[2025-04-29 21:14] VITALS: BP 111/72; PULSE 72; RESP 15; O2SAT 97
== END 2025-04-29 21:15 | disposition home or self-care (01) ==
PROVIDERS: Emergency Provider Registered Nurse; PCP Physician Assistant
DX: R42 Dizziness and giddiness (principal); R25.8 Other abnormal involuntary movements; E66.01 Morbid (severe) obesity due to excess calories; F17.210 Nicotine dependence, cigarettes, uncomplicated; Z68.36 Body mass index [BMI] 36.0-36.9, adult; I45.9 Conduction disorder, unspecified
CPT/HCPCS: 36415; 80053; 80307; 81003; 83036; 83735; 84443; 84484; 85025; 85610; 85730; 93005; 96360; 99284; J7030